=== PATIENT | male | born 1930 | race Caucasian/White ===

== ENCOUNTER 2017-01-13 02:55 | Emergency (ER) | payer MEDICARE ==
--- NOTE | ~2017-01-13 | ER ---
PATIENT'S NAME: SEDA CALIXTO [facility] AGE: 86 Y [address] ROOM: [place] [address] LOCATION: ED ADMIT DATE: 01/13/2017 ER/Outpatient Report DISCHARGE DATE: 01/13/2017 FAMILY PHYSICIAN: Bharti Ramirez MD ATTENDING PHYSICIAN: Noah Isabel Admission date and time documented in medical record. I saw the patient at 0315 hours. CHIEF COMPLAINT: Low abdominal pain radiating to his right chest anteriorly. HISTORY OF PRESENT ILLNESS: This patient is an 86-year-old male, who about 2 hours prior to admission to the emergency room was woken from sleep with low abdominal pain. Pain is constant. It radiates up into his right anterior chest. The pain is across his whole lower abdomen. No nausea, vomiting, or diarrhea. No urinary frequency, urgency, or dysuria. No joint or muscle swelling, redness, or pain. No skin eruptions or rash. No lightheadedness, dizziness, syncope, or near syncope. No fall or trauma. No recent coughs, colds, flus, fever, chills, or sweats. No headache, eyes, ears, nose, throat, neck, or spine pain. The patient does have a history of url-ifworbp-tzztzxwip diabetes mellitus type 2. No neuro changes or psych issues. HOME MEDICATIONS: See attached medication list. ALLERGIES: VERSED AND SULFA. SOCIAL HISTORY: Nonsmoker and nondrinker. SIGNIFICANT PAST MEDICAL HISTORY: 1. Atherosclerotic ischemic heart disease. 2. Coronary artery disease. 3. COPD. 4. Ascending dissecting aortic aneurysm. 5. Dyslipidemia. 6. Hypertension. 7. Insomnia. 8. Osteoporosis. 9. Degenerative osteoarthritis. 10. Adm-dvmuumi-sjnnsolqd diabetes mellitus type 2. 11. Prostate cancer. PATIENT'S NAME: SEDA CALIXTO [facility] AGE: 86 Y [address] ROOM: [place] [address] LOCATION: ED ADMIT DATE: 01/13/2017 ER/Outpatient Report DISCHARGE DATE: 01/13/2017 FAMILY PHYSICIAN: Bharti Ramirez MD ATTENDING PHYSICIAN: Noah Isabel 12. Basal cell skin cancer. 13. Remote tobacco abuse. 14. Ventricular fibrillation with cardiac arrest. PAST SURGICAL HISTORY: 1. Excision of skin cancers. 2. Ascending aortic aneurysm repair. 3. Right orchectomy. 4. Transurethral resection of the prostate. 5. Inguinal herniorrhaphy. 6. Cardiac catheterization with PTCA and stenting cataract extraction. REVIEW OF SYSTEMS: All systems reviewed by me are negative with exception of those discussed in the history of present illness. PHYSICAL EXAMINATION: VITAL SIGNS: Temperature 97.8 tympanic, pulse 64 and regular, respirations 16, blood pressure 192/91, and O2 saturation on room air is 93%. HEAD: Normocephalic. EYES, EARS, NOSE, THROAT: Clear. Mucous membranes are moist. NECK: Negative. SPINE: Negative. LUNGS: Clear. HEART: Regular. No chest wall or ribcage pain to palpation. ABDOMEN: Soft. Some lower abdominal pain. No true guarding or rigidity. No rebound tenderness. Active bowel tones. No distention. No CVA tenderness. EXTREMITIES: Intact. NEUROVASCULAR: Intact. SKIN: Clear. No skin eruptions or rash. LABORATORY DATA: CMS was normal except for an elevated glucose 118, magnesium 2.1. Amylase and lipase were normal. CPK was 82. Point of care cardiac enzymes were normal. CRP was 0.51. ProBNP was slightly elevated at 649. Procalcitonin was less than 0.05. Lactate was 0.8. Urinalysis was clear. White count is 4300, 60 segs, 25 lymphs, 12 monos, 2 eos. Hemoglobin is 12.9, hematocrit 38.9, platelet count is 194,000. PTT was 27, pro-time is 10.6. INR 1.01. EKG showed sinus rhythm. No acute ST elevation, ischemic change, or arrhythmia. Chest x-ray showed no acute infiltrate or changes. CT scan of the abdomen and pelvis with IV contrast is pending. EMERGENCY DEPARTMENT COURSE: I did give the patient IV normal saline, fluids, morphine for pain. Zofran for nausea and vomiting. PATIENT'S NAME: SEDA CALIXTO [facility] AGE: 86 Y [address] ROOM: [place], [place] [address] LOCATION: [facility] ADMIT DATE: 01/13/2017 ER/Outpatient Report DISCHARGE DATE: 01/13/2017 FAMILY PHYSICIAN: Bharti Ramirez MD ATTENDING PHYSICIAN: Noah Isabel IMPRESSION: Abdominal pain, etiology uncertain. PLAN: Transfer the patient's care over to Dr. Kuo at shift change. I asked Dr. Kuo to follow up with results of CT scan of the abdomen and pelvis, final diagnosis, and treatment plan. MD DON BURT/zeferino /[id number] d: 01/13/17 0843 t: 01/21/17 1829, OUTPATIENT REPORT
--- NOTE | ~2017-01-13 | ER ---
PATIENT'S NAME: ESDA CALIXTO [facility] AGE: 86 Y [address] ROOM: [place] [address] LOCATION: [facility] ADMIT DATE: 01/13/2017 ER/Outpatient Report DISCHARGE DATE: 01/13/2017 FAMILY PHYSICIAN: Bharti Ramirez MD ATTENDING PHYSICIAN: Soham Vieyra ADDENDUM: The patient's CT scan of the abdomen and pelvis results did come back, so I did not transfer the patient's care over to Dr. Kuo at shift change. CT scan of the abdomen and pelvis with IV contrast showed cholelithiasis but no evidence of acute cholecystitis. No other abnormalities were noted. CT scan was read by Radiology, see dictated transcribed report. IMPRESSION: 1. Abdominal pain, etiology uncertain, but most likely secondary to cholelithiasis. 2. History of atherosclerotic ischemic heart disease and coronary artery disease. 3. Chronic obstructive pulmonary disease. 4. Past history of ascending dissecting aortic aneurysm with repair. 5. Dyslipidemia. 6. Hypertension. 7. Rwn-rwroyxo-kpvkqjqox diabetes mellitus type 2. 8. History of prostate cancer. 9. History of remote tobacco abuse. PLAN: The patient was dismissed home. Observation. Activity as tolerated. Continue present home medications and care. [place] 5/325 as needed for pain. The patient is to follow up with personal physician in 2 to 3 days. Need to discuss with his personal physician whether he needs a surgery consult and possible cholecystectomy. Discussion ensued with the patient concerning my findings and recommendations, he understands. SOHAM VIEYRA MD SDS/modl /[id number] d: 01/13/17 0759 t: 01/21/17 1826, OUTPATIENT REPORT
[~2017-01-13 02:55] MED LIST: ALDACTONE25 MG PO; AMIODARONE HCL200 MG PO; ASPIRIN EC81 MG PO; COLACE100 MG PO; COZAAR25 MG PO; HALDOL2 MG PO; LIPITOR80 MG PO; LOPRESSOR25 MG PO; MIRALAX PO527 GM/BOT PO; MOBIC15 MG PO; NORCO 5-325 MG1 TAB PO; PLAVIX75 MG PO; SANCTURA 20MG20 MG PO; THERAGRAN-M1 TAB PO; TOPROL XL25 MG PO
[2017-01-13 03:53] LABS: BASOPHIL % 0.2 %; EOSINOPHIL # 0.1 K/uL (0.0-0.5); EOSINOPHIL % 2.3 %; HEMATOCRIT 38.9 % (33.0-50.0); HEMOGLOBIN 12.9 g/dL (11.0-16.0); IMMATURE GRANULOCYTE % 0.5 %; LYMPHOCYTE # 1.1 K/uL (0.8-4.0); LYMPHOCYTE % 25.3 %; MCH 32.2 pg (27.0-34.0); MCHC 33.2 gm/dL (32.0-36.5); MONOCYTE # 0.5 K/uL (0.0-1.0); MONOCYTE % 11.6 %; NEUTROPHIL # (ANC) 2.6 K/uL (1.4-9.0); NEUTROPHIL % 60.1 %; NRBC % 0 /100WBC (0-0.00); PLATELET COUNT 194 K/uL (150-450); RBC 4.01 M/uL (3.50-5.50); RDW-CV 13.2 % (11.9-14.6); WBC 4.3 K/uL (4.0-11.0)
[2017-01-13 04:03] LABS: INR - (THERAPEUTIC) 1.01 (0.92-1.07); PROTIME 10.6 SECONDS (9.8-11.4); PTT 27 SECONDS (25-32)
[2017-01-13 04:15] LABS: CPK 82 IU/L (35-332); MAGNESIUM 2.1 mg/dL (1.8-2.6)
[2017-01-13 04:17] LABS: ALBUMIN 3.5 gm/dL (3.5-5.0); ALK PHOS 93 IU/L (33-138); ALT 26 IU/L (12-78); ANION GAP 13.1 (10.0-19.0); AST 18 IU/L (10-40); BLOOD UREA NITROGEN 24 mg/dL (6-24); CALCIUM 8.7 mg/dL (8.5-10.5); CHLORIDE 106 mMol/L (96-110); CO2 27 mMol/L (22-32); ESTIMATED GFR (MDRD EQUATION) > 60; POTASSIUM 4.1 mMol/L (3.7-5.1); SODIUM 142 mMol/L (135-145); TOTAL BILIRUBIN 0.6 mg/dL (0.0-1.5); TOTAL PROTEIN 6.3 g/dL (6.0-8.4)
[2017-01-13 04:44] LABS: BILIRUBIN URINE NEGATIVE (NEGATIVE); BLOOD URINE NEGATIVE /UL (NEGATIVE); GLUCOSE URINE NEGATIVE (NEGATIVE); KETONE URINE NEGATIVE (NEGATIVE); LEUKOCYTES URINE NEGATIVE /UL (NEGATIVE); NITRITE URINE NEGATIVE (NEGATIVE); PROTEIN URINE NEGATIVE (NEGATIVE); UROBILINOGEN URINE NORMAL (NORMAL)
[2017-01-13 04:49] LABS: COLOR URINE YELLOW (YELLOW); TURBIDITY URINE CLEAR (CLEAR)
[2017-01-23] MEDS ORDERED: GLUCOPHAGE500 MG PO (17:19)
[2017-01-23] MEDS ORDERED: MIRALAX PO527 GM/BOT PO (17:20)
[2017-01-23] MEDS ORDERED: LASIX20 M1 PO (17:21)
[2017-01-23] MEDS ORDERED: OXYGEN M-15 INH (17:22)
[2017-01-23] MEDS ORDERED: SPIRIVA HANDIHA1 KIT INH (17:23)
[2017-01-28] MEDS ORDERED: NORCO 5-325 TA1 EACH PO (12:48)
== END 2017-01-13 06:36 | disposition disaster alternative care site (69) ==
LOC: GMED 02:55
PROVIDERS: Emergency Medicine
DX: K80.20 Calculus of gallbladder without cholecystitis without obstruction (principal); J44.9 Chronic obstructive pulmonary disease, unspecified; I10 Essential (primary) hypertension; E11.9 Type 2 diabetes mellitus without complications; I25.10 Atherosclerotic heart disease of native coronary artery without angina pectoris; M81.0 Age-related osteoporosis without current pathological fracture; M19.90 Unspecified osteoarthritis, unspecified site; E78.5 Hyperlipidemia, unspecified; Z79.84 Long term (current) use of oral hypoglycemic drugs; Z79.899 Other long term (current) drug therapy; Z85.46 Personal history of malignant neoplasm of prostate; Z85.828 Personal history of other malignant neoplasm of skin; Z95.5 Presence of coronary angioplasty implant and graft; Z98.49 Cataract extraction status, unspecified eye
CPT/HCPCS: J2270; J2405; J7030; Q9967

== ENCOUNTER → 2017-01-28 | Day surgery (SDC) | payer MEDICARE ==
[~2017-01-28] VITALS: Ht 175.3 cm; Wt 82.2 kg
[~2017-01-28] MED LIST changes: +ASPIRIN LO-DOSE81 MG PO; +CRANBERRY200 MG PO; +DELTASONE5 MG PO; +GLUCOPHAGE500 MG PO; +IMDUR30 MG PO; +LASIX20 M1 PO; +MIRALAX17 GM PO; +NORCO 5-325 TA1 EACH PO; +NORVASC5 MG PO; +OXYGEN M-15 INH; +SPIRIVA HANDIHA1 KIT INH
--- NOTE | ~2017-01-28 | OR ---
PATIENT'S NAME: SEDA CALIXTO [facility] AGE: 86 Y [address] ROOM: [place] [address] LOCATION: [place] ADMIT DATE: 01/28/2017 OR/Procedure Report DISCHARGE DATE: FAMILY PHYSICIAN: Bharti Ramirez MD ATTENDING PHYSICIAN: Mati Black SURGEON: Mati Black MD SPORTS MEDICINE SPECIALIST: Viji Gray PA-C. DATE OF PROCEDURE: 01/28/2017 PREOPERATIVE DIAGNOSIS: Symptomatic cholelithiasis. POSTOPERATIVE DIAGNOSIS: Symptomatic cholelithiasis. PROCEDURE: Laparoscopic cholecystectomy. FINDINGS: Critical window was able to be obtained, there were stones in the gallbladder. ESTIMATED BLOOD LOSS: Less than 20 mL. COMPLICATIONS: None. INDICATIONS: The patient is an 86-year-old male, who had presented with abdominal pain, elevated liver function tests, cholelithiasis, and symptoms consistent with biliary colic. Because of this, we discussed cholecystectomy as well as observation; risks of surgery, which include bleeding, infection, bile leak, bile duct injury, and injury to other viscera. He understood the risks and elected to proceed. DESCRIPTION OF PROCEDURE: The patient was taken to the operating room. He was placed supine, given IV sedation, and subsequently intubated. His abdomen was prepped with ChloraPrep and sterilely draped. Local anesthetic was infiltrated superior to the umbilicus. A transverse incision was created. The abdomen was elevated. Veress needle was inserted. Pneumoperitoneum was induced. Following this, a 5 mm trocar was inserted followed by insertion of the camera. There was no injury from initial trocar placement. Three more trocars were then positioned, an 11 mm epigastric and two 5 mm right subcostal ports. Skin overlying the peritoneum was first anesthetized prior to making these incisions. All 3 of these trocars were inserted under direct visualization. The gallbladder was then grasped, it was elevated over the dome of the liver. The infundibulum was grasped and retracted inferiorly and laterally to expose the Calot triangle. There were some adhesions that had to be taken down prior to being able to do this. The cystic duct and artery were dissected around circumferentially. A critical window was able to be obtained. Both of these structures were then doubly clipped and divided. The PATIENT'S NAME: SEDA CALIXTO [facility] AGE: 86 Y [address] ROOM: [place] [address] LOCATION: [place] ADMIT DATE: 01/28/2017 OR/Procedure Report DISCHARGE DATE: FAMILY PHYSICIAN: Bharti Ramirez MD ATTENDING PHYSICIAN: Mati Black gallbladder was then removed from the liver bed using electrocautery. This was placed in EndoCatch bag and removed through the epigastric port site. The liver bed was then inspected, it appeared hemostatic. Clips appeared to be in good position on both the cystic duct and artery. The area was irrigated. Fluid was removed. The pneumoperitoneum was released. The trocars were removed. The trocar sites appeared hemostatic. The fascia of the epigastric port site was approximated with 0 Vicryl suture followed by skin closure of all 4 port sites with 4-0 Monocryl suture. Steri-Strips and sterile dressings were placed. The patient was extubated and sent to recovery in good condition. Viji Gray was necessary for visualization, retraction, and aiding in hemostasis throughout the case. MATI BLACK MD BJO/modl /[id number] d: 01/28/172019 t: 01/31/17 0610, OPERATIVE SUMMARY
== END ==
LOC: GPOC 01-23 17:00 → GSDC 08:58
PROC: 0FT44ZZ Resection of Gallbladder, Percutaneous Endoscopic Approach (ICD-10-PCS; principal; 2017-01-28)
DX: K80.20 Calculus of gallbladder without cholecystitis without obstruction (principal); M19.90 Unspecified osteoarthritis, unspecified site; M81.0 Age-related osteoporosis without current pathological fracture; E11.9 Type 2 diabetes mellitus without complications; K21.9 Gastro-esophageal reflux disease without esophagitis; E78.00 Pure hypercholesterolemia, unspecified; I10 Essential (primary) hypertension; I25.2 Old myocardial infarction; I25.10 Atherosclerotic heart disease of native coronary artery without angina pectoris; J44.9 Chronic obstructive pulmonary disease, unspecified; E78.5 Hyperlipidemia, unspecified; Z85.46 Personal history of malignant neoplasm of prostate; Z87.442 Personal history of urinary calculi; Z98.41 Cataract extraction status, right eye; Z98.42 Cataract extraction status, left eye; Z98.890 Other specified postprocedural states; Z79.82 Long term (current) use of aspirin; Z79.899 Other long term (current) drug therapy
CPT/HCPCS: J0694; J2405; J2550; J3010; J7030

== ENCOUNTER 2017-03-14 22:57 | Inpatient (IN) | payer MEDICARE ==
[~2017-03-14] VITALS: Ht 177.8 cm; Wt 81.1 kg
--- NOTE | ~2017-03-14 | DS ---
PATIENT'S NAME: SEDA CALIXTO [facility] AGE: 86 Y [address] ROOM: [facility] [place], [place] [address] LOCATION: [facility] ADMIT DATE: 03/15/2017 Discharge Summary DISCHARGE DATE: 03/17/2017 FAMILY PHYSICIAN: Bharti Ramirez MD ATTENDING PHYSICIAN: Leeroy Ruelas FINAL DIAGNOSES: 1. Chest pain. 2. Nonobstructive coronary artery disease. 3. Residual thoracic dissection. 4. Diabetes mellitus type 2. PROCEDURES: He had a heart catheterization by Dr. Bocanegra on February 14, 2017. REASON FOR ADMISSION: The patient is admitted, presented to the hospital with complaints of right-sided chest pain and that was associated with diaphoresis. He did take nitroglycerin at home and his symptoms improved. He was seen in the emergency room and it was felt that he warranted hospitalization. LABORATORY DATA: On admission sodium 138, discharge 140; potassium on admission was 4.3, discharge 4; BUN on admission was 28, discharge 19; creatinine on admission was 1, discharge 0.8. Liver enzymes on admission were normal. Cholesterol 106, HDL 45, LDL 48. ProBNP on admission was 467. Hemoglobin A1c was 6.4. Serial cardiac enzymes all returned with a troponin less than 0.01. On admission, white blood cell count 6.1, hemoglobin 12.9, hematocrit 38, platelet count 196. CARDIOVASCULAR DATA: Echocardiogram showed his EF to be 55% to 60%. He had concentric left ventricular hypertrophy. His aortic valve was mildly sclerotic. Radiology, PE protocol study showed that there was some concern about residual dissection. HOSPITAL COURSE: The patient was admitted to the hospital and placed on the acute coronary protocol. Serial enzymes were obtained. The patient was started on a heparin drip. There was some concern on his CT scan for residual dissection. Decision was made to do the PE protocol CT scan and an echocardiogram. Dr. Michel from Cardiothoracic Surgery did evaluate the patient and felt that at this point, there was no reason why we could not proceed with a stress test. The patient was weaned off the nitro medications, and his blood pressure medications were adjusted. He did go to the filling station laborer the morning of the . Please see Dr. Bocanegra's note for details of the filling station laborer. It was felt that because he had nonobstructive disease that he would be able to be discharged with followup as an outpatient. He was observed. He was able to ambulate in the johnson without any chest pain and shortness of breath. His blood pressure remained stable. It was felt that he was stable PATIENT'S NAME: SEDA CALIXTO [facility] AGE: 86 Y [address] ROOM: [place] [address] LOCATION: [facility] ADMIT DATE: 03/15/2017 Discharge Summary DISCHARGE DATE: 03/17/2017 FAMILY PHYSICIAN: Bharti Ramirez MD ATTENDING PHYSICIAN: Leeroy Ruelas for discharge and discharged to home. DISCHARGE INSTRUCTIONS: To have a cardiac diet. His activity is routine post catheterization. He is to see Dr. Bharti Ramirez his PCP in 3 to 5 days. He did ask to switch to Dr. Bocanegra to be his try out person. An appointment was made for 10 to 14 days with a BMP. MEDICATIONS: 1. Aspirin 81 mg daily. 2. Lipitor 80 mg daily. 3. Plavix 75 mg daily. 4. Norvasc 5 mg daily. 5. Imdur 30 mg daily. 6. Lopressor 12.5 mg 4 times daily. 7. MiraLAX 17 g twice daily as needed for constipation. 8. Prednisone 5 mg daily. 9. Multivitamin daily. 10. Sanctura 20 mg twice daily. 11. Spiriva 2 puffs daily. 12. [place]aver[place] 5/325, 1 to 2 every 4 hours as needed for pain. 13. Aldactone 12.5 mg daily. 14. Glucophage 500 mg daily, resume on March 19. 15. Lasix 20 mg daily. 16. Oxygen as at home. 17. Cranberry 1 tablet daily. 18. Colace 100 mg daily as needed for constipation. OVERALL PROGNOSIS: At discharge, is good. ANYA LOUIE MD LAW/modl /[id number] CC: MD Bharti Cronin MD d: 03/18/17 2325 t: 03/23/17 1626, DISCHARGE SUMMARY
--- NOTE | ~2017-03-14 | ECHO ---
Transthoracic Echocardiography Report (TTE) Demographics Patient Name SEDA CALIXTO Date of Study 03/15/2017 Patient Number [id number] Visit Number [id number] Date of 1930 Room Number G6332 Gender Male Number Age 86 year(s) Referring James Mattson Cotton Candy Maker Nay Yung RVIsabel, Physician RDCS Physician Interpreting Daljit Jones Tool Inspector Physician Supervising Ordering Suraj Schafer MD, MD/MLP Physician Nurse Stress Pest Control Applicator Conclusions Contractility Score Summary Normal Left Ventricular contractility was noted. Summary The estimated left ventricular ejection fraction is 55-60%. Mild concentric left ventricular hypertrophy. Diastolic assessment reveals Grade I diastolic dysfunction. The left atrium is mildly dilated. The aortic valve is moderately sclerotic. with mild aortic stenosis with mean gradient across aortic valve of 8 mm hg There is mild aortic regurgitation by color Doppler. The aortic root appears moderately dilated. The maximum diameter measures 4.1 cm. The ascending aorta appears mildly dilated. The maximum diameter measures 3.9 cm. Procedure Type of Study TTE procedure:2D Echocardiogram. Procedure Date Date: 03/15/2017 Start: 11:52 AM Study Location: Inpatient Portable Technical Quality: Good visualization Indications:Chest pain. Appropriate Use Criteria: 8 Patient Status: Routine Rhythm: NSR HR: 67 bpm BP: 142/63 mmHg Allergies - Sulfa. - Other:(versed). M-Mode/2D Measurements LV Diastolic Dimension: 4.06 cm LV Systolic Dimension: 1.96 cm LV Septum Diastolic: 1.3 cm LV PW Diastolic: 1.41 cm AO Root Dimension: 3.8 cm Cardiac Output: 8.15 l/min AV Cusp Separation: 1.1 cm RV Diastolic Dimension: 2.92 cm LA volume: 64 ml LVOT: 2.3 cm RV Base: 4.1 cm LVOT VTI: 29.3 cm RV Mid: 3.65 cm LV Stroke volume: 121.67 ml TAPSE: 2.12 cm TDI-S': 9.21 cm/s Doppler Measurements AV Peak Velocity: 2.03 m/s MV Peak E-Wave: 0.78 m/s AV Peak Gradient: 16.48 mmHg MV Peak A-Wave: 1.06 m/s AV Mean Gradient: 8 mmHg MV E/A Ratio: 0.73 LVOT Peak Velocity: 1.23 m/s MV P1/2t: 67 msec TR Gradient:10.5 mmHg PV Peak Velocity: 0.94 m/s Estimated RAP:5 mmHg PV Peak Gradient: 3.54 mmHg Estimated RVSP: 16 mmHg Estimated PASP: 15.5 mmHg E' Septal Velocity: 0.08 m/s A' Septal Velocity: 0.13 m/s E' Lateral Velocity: 0.08 m/s A' Lateral Velocity: 0.13 m/s Findings Left Ventricle Mild concentric left ventricular hypertrophy. Diastolic assessment reveals Grade I diastolic dysfunction. Right Ventricle Normal right ventricle structure and function. Left Atrium The left atrium is mildly dilated. There is no evidence of patent foramen ovale or atrial septal defect by color Doppler. Right Atrium Normal right atrial size. Mitral Valve Mild mitral annular calcification. Aortic Valve The aortic valve is moderately sclerotic. with mild aortic stenosis with mean gradient across aortic valve of 8 mm hg There is mild aortic regurgitation by color Doppler. Tricuspid Valve Normal tricuspid valve structure and function. Trivial tricuspid regurgitation by color Doppler. Pulmonic Valve Normal pulmonic valve structure and function. Pericardial Effusion No evidence of pericardial effusion. Miscellaneous The aortic root appears moderately dilated. The maximum diameter measures 4.1 cm. The ascending aorta appears mildly dilated. The maximum diameter measures 3.9 cm. Pleural Effusion No evidence of pleural effusion. Contractility Score LV regional wall motion:(0-Non visualized 1-Normal 2-Hypokinesis 3-Akinesis 4-Dyskinesis 5-Aneurysm) Signature dtt: GLORIA SANTOS dtd: 03/15/17 1152 Physician Self Edit
--- NOTE | ~2017-03-14 | ER ---
PATIENT'S NAME: JUWAN CALIXTOALD Ese [facility] AGE: 86 Y [address] ROOM: [facility] [place] [place], [place] [address] [facility] AD[facility] DATE: 03/15/2017 ER/Outpatient Report DISCHARGE DATE: FAMILY PHYSICIAN: Bharti Ramirez MD ATTENDING PHYSICIAN: JOSE RAFAEL RUELAS Admission date and time documented in the medical record. I saw the patient at 2305 hours. CHIEF COMPLAINT: Mid to right anterior chest pain. HISTORY OF PRESENT ILLNESS: The patient is an 86-year-old male, who was sitting reading at home, around 2100 hours developed some mid right anterior chest pain. Pain is nonradiating. The patient's pain was about 8/10. The patient did take 2 sublingual nitroglycerin that brought his pain down to about a 4/10. He presented to the emergency room for evaluation. No accompanied shortness of breath, nausea, vomiting, or lightheadedness. Did have some diaphoresis with this. The patient is known to have coronary artery disease. Has had some coronary artery stenting by history. No previous myocardial infarction. He has had a history of an ascending dissecting aortic aneurysm with repair. No fall or trauma. No recent colds, coughs, flus, fever, chills, or sweats. Does hurt when he takes a deep breath or coughs. No real tenderness with movement. No lightheadedness, dizziness, syncope, or near syncope. No headache, eyes, ears, nose, throat, neck, or spine pain. No abdominal pain. No diarrhea or urinary frequency, urgency, or dysuria. No joint or muscle swelling, redness, or pain. No skin eruptions or rash. No history of thyroid disease, but does have fyo-bfifley-aydshrjyy diabetes mellitus type 2. No history of psych issues. No history of CVA, TIA, or seizure disorder. HOME MEDICATIONS: See attached medication list. ALLERGIES: VERSED, SULFA. SOCIAL HISTORY: Nonsmoker, nondrinker. SIGNIFICANT PAST MEDICAL HISTORY: Atherosclerotic ischemic heart disease with coronary artery disease, COPD, ascending dissecting aortic aneurysm with repair, dyslipidemia, hypertension, insomnia, osteoporosis, degenerative osteoarthritis, wum-pnvumys-bjgrgmmxw diabetes mellitus type 2, prostate cancer, basal cell skin cancer, remote [facility] 86 [facility] [address] ROOM: [id number] [place], [place] [address] [facility] AD[facility] DATE: 03/15/2017 ER/Outpatient Report DISCHARGE DATE: FAMILY PHYSICIAN: Bharti Ramirez MD ATTENDING PHYSICIAN: JOSE RAFAEL RUELAS tobacco abuse, past episode of ventricular fibrillation with cardiac arrest. OPERATIONS: Transurethral resection of the prostate, inguinal herniorrhaphy, right orchectomy, repair of ascending aortic aneurysm dissection, excision of skin cancer, cardiac catheterization with PTCA and stenting, laparoscopic cholecystectomy. REVIEW OF SYSTEMS: All systems reviewed by me are negative with the exception of those discussed in the history of the present illness. PHYSICAL EXAMINATION: VITAL SIGNS: Temperature 97.6 tympanic, pulse 69 and regular, respirations 16, blood pressure 132/63, O2 sat on room air is 93%. Frantz Coma Scale was 15. HEAD: Normocephalic. EYES, EARS, NOSE, THROAT: Clear. Mucous membranes moist. TEETH/JAW: Intact. NECK: No nuchal rigidity. No thyromegaly or cervical lymphadenopathy. No tenderness. SPINE: Nontender. No deformity. LUNGS: Clear. Good air flow. No rales, rhonchi, or wheezes. HEART: Regular. Pulses are palpable. No chest wall or ribcage pain to palpation. ABDOMEN: Soft, nondistended, nontender. Good bowel tones. No organomegaly or abnormal mass palpable. No CVA tenderness. EXTREMITIES: Intact. NEUROVASCULAR: Intact. SKIN: Clear. No skin eruptions or rash. DIAGNOSTIC DATA: EKG showed sinus rhythm. No acute ST elevation, ischemic change, or arrhythmia. Does have some questionable T-wave inversion laterally that possibly could be ischemic. Chest x-ray showed no acute infiltrate or changes. We will review x-ray with the radiologist. LABORATORY DATA AND X-RAYS: White count is 8100, 65 segs, 23 lymphs, 9 monos, 2 eos, 1 baso. Hemoglobin is 13.9, hematocrit 40.8, platelet count is 230,000. PTT was 25, pro-time is 10.3 with an INR of 0.98. CMS was normal except for elevated glucose of 110. Low calcium of 8.3, elevated BUN of 28. Magnesium was 2.0, CPK was 62. Point of care cardiac enzymes were normal. EMERGENCY DEPARTMENT COURSE: PATIENT'S NAME: SEDA CALIXTO [facility] AGE: 86 Y [address] ROOM: [place] [facility] [place] [place], [place] [address] [facility] AD[facility] DATE: 03/15/2017 ER/Outpatient Report DISCHARGE DATE: FAMILY PHYSICIAN: Bharti Ramirez MD ATTENDING PHYSICIAN: JOSE RAFAEL RUELAS I did start the patient on IV nitroglycerin drip with resolution of his pain. Also started him on IV heparin for cardiac protocol. Did give him 4 baby aspirin orally on arrival to the emergency department. IMPRESSION: 1. Chest pain, unstable angina. The patient does have a history of coronary artery disease. He has had previous cardiac catheterization with PTCA and stenting. 2. Chronic obstructive pulmonary disease. 3. Hypertension. 4. Dyslipidemia. 5. Past history of dissecting ascending aortic aneurysm with repair. 6. Ath-igeyuvm-jqsetrnqc diabetes mellitus type 2. 7. Past history of prostate cancer. 8. Remote tobacco abuse. 9. An incident where he had ventricular fibrillation with cardiac arrest. PLAN: Discussed this patient with Dr. Ruelas, the hospitalist. Dr. Ruelas is coming to the emergency room to admit the patient to the hospital for further cardiac workup and evaluation. I did discuss my findings with the patient and his . They understand and agree with treatment plan. Accumulated critical care time 30 minutes. MD DON BURT/zeferino /[id number] d: 03/15/17 0133 t: 03/15/17 1808, OUTPATIENT REPORT
--- NOTE | ~2017-03-14 | HP ---
PATIENT'S NAME: SEDA CALIXTO [facility] AGE: 86 Y [address] ROOM: [place] [address] LOCATION: GPCU ADMIT DATE: 03/15/2017 History & Physical DISCHARGE DATE: FAMILY PHYSICIAN: Bharti Ramirez MD ATTENDING PHYSICIAN: JOSE RAFAEL ESTRADA DATE OF SERVICE: CHIEF COMPLAIN: Chest pain. HISTORY OF PRESENT ILLNESS: This is an 86-year-old gentleman with a past medical history of coronary artery disease unfortunately leading to cardiac arrest in the past, also has aortic dissection, history of hypertension, type 2 diabetes. At home around 2100 hours, he developed right-sided sharp chest pain which started suddenly associated with diaphoresis, not assisted with any shortness of breath, any palpitation. Did not radiate to the back or either shoulders. It was about 8/10, relieved with the nitroglycerin which he took at home. He has to take another nitroglycerin before coming to the emergency department. He said it was not associated with any dizziness, any abdominal pain, any constipation, diarrhea. On further inquiry, he denied any leg swelling, any palpitations, any syncope, presyncope or any trouble swallowing. REVIEW OF SYSTEMS: All other systems reviewed and were negative except those mentioned in the HPI. ALLERGIES: THE PATIENT IS ALLERGIC TO SULFA AND VERSED. PAST MEDICAL HISTORY: Significant for: 1. Coronary artery disease status post PCI to left proximal. 2. History of aortic repair. 3. Type 2 diabetes. 4. Prostate cancer. 5. Osteoporosis. 6. Osteoarthritis. 7. Dyslipidemia. MEDICATIONS: Being reconciled right now. FAMILY HISTORY: PATIENT'S NAME: SEDA CALIXTO [facility] AGE: 86 Y [address] ROOM: [place] [address] LOCATION: GPCU ADMIT DATE: 03/15/2017 History & Physical DISCHARGE DATE: FAMILY PHYSICIAN: Bharti Ramirez MD ATTENDING PHYSICIAN: JOSE RAFAEL ESTRADA A Brother had skin cancer. Father had heart disease in old age. Mother of stroke. SOCIAL HISTORY: History of tobacco abuse in the distant past. PHYSICAL EXAMINATION: VITAL SIGNS: Blood pressure in both arms were comparable around 110/60 heart rate 52, saturating 95% on 2 L of oxygen. GENERAL: No acute distress. Alert and oriented x3. HEENT: Head: Atraumatic, normocephalic. Eyes: Nonicteric. No pallor. Oropharynx moist mucous membranes. CARDIOVASCULAR: S1, S2. No murmurs, gallops, or rubs. LUNGS: Clear to auscultation bilaterally. ABDOMEN: Soft, nontender, nondistended. Bowel sounds present. EXTREMITIES: There is +1 extremity edema on the left side. Otherwise, no clubbing, no cyanosis noted. MUSCULOSKELETAL: No muscle tenderness or joint swelling noted. PSYCH: Normal affect, mood and speech. NEURO: Cranial nerves 2 through 12 intact. No motor or sensory deficit. ENDOCRINE: No thyromegaly or myxedema noted. SKIN: No blemishes or dryness noted. DIAGNOSTIC DATA: Chest x-ray done in the emergency department did not reveal any acute intrathoracic processes. EKG was done, which was in normal sinus rhythm, did show T-wave inversion in lead 1 and aVL which is a significant change from the previous EKGs. Initial troponin levels, CBC and CMP have been unremarkable. ASSESSMENT: 1. Likely unstable angina. 2. History of coronary artery disease. 3. History of aortic dissection. 4. Type 2 diabetes mellitus. 5. Hypertension. 6. Hyperlipidemia. 7. Prostate cancer. PLAN: We are going to admit this patient and do a serial EKG and troponin levels. Aspirin, statin and a nitro drip had been started. I did entertain the idea of pulmonary embolism as well as aortic dissection. We are going to get D- dimers if negative. We will start the patient on heparin drip as soon as the PATIENT'S NAME: SEDA CALIXTO [facility] AGE: 86 Y [address] ROOM: [address] [address] LOCATION: GPCU ADMIT DATE: 03/15/2017 History & Physical DISCHARGE DATE: FAMILY PHYSICIAN: Bharti Ramirez MD ATTENDING PHYSICIAN: JOSE RAFAEL ESTRADA A concern for aortic dissection is ruled out. Physical exam is not suggestive of that. Chest pain is not radiating to the back. Otherwise, we will go ahead and get a CAT scan of the chest, time for aortic dissection. Echocardiography in the morning. Cardiology consult in the morning. N.p.o. Sliding scale insulin. Activity as tolerated. Further management will depend on his progress in the hospital. MD LENIN MCCALL/zeferino /[id number] D: [id number] T: [id number] HISTORY & PHYSICAL
--- NOTE | ~2017-03-14 | CON ---
PATIENT'S NAME: SEDA CALIXTO [facility] AGE: 86 Y [address] ROOM: [place] [address] LOCATION: GPCU ADMIT DATE: 03/15/2017 Consultation DISCHARGE DATE: FAMILY PHYSICIAN: Bharti Ramirez MD ATTENDING PHYSICIAN: JOSE RAFAEL ESTRADA REFERRING PHYSICIAN: Jayy Suarez MD REFERRING PHYSICIAN: Dr. Lilly. REASON FOR CONSULT: Chest pain. HISTORY OF PRESENT ILLNESS: Mr. Calixto is a pleasant 86-year-old male with historyof coronary artery disease, status post percutaneous intervention of circumflex coronary artery and history of aortic dissection, status post surgery who presented to the emergency room with history of chest pain. The patient stated that he had persistent chest pain for few hours in the front of the chest and right side of the chest. The pain was 8 x 10 in intensity. It subsided after sublingual nitroglycerin and had recurrence and he had to take another sublingual nitroglycerin for relief of pain. Presently, the patient is chest pain-free. He denied any shortness of breath. He is physically not very active due to chronic ankle pain. He was seen in the emergency room and was found to have elevated D-dimers and was admitted for further management. REVIEW OF SYSTEMS: The patient denied any recent change in vision. No history of nausea, vomiting, diarrhea, or constipation. No history of fever, no history of cough or expectoration. No history of abdominal pain. Review of other systems was essentially negative. PAST MEDICAL HISTORY: Aortic dissection, status post repair; coronary artery disease, status post percutaneous intervention of left circumflex coronary artery; diabetes mellitus type 2; prostate cancer; osteoporosis; osteoarthritis; and dyslipidemia. PAST SURGICAL HISTORY: The patient stated he had gallbladder removed recently. SOCIAL HISTORY: The patient is . PERSONAL HISTORY: He quit smoking several years ago, nonalcoholic. PATIENT'S NAME: SEDA CALIXTO [facility] AGE: 86 Y [address] ROOM: [place] [address] LOCATION: GPCU ADMIT DATE: 03/15/2017 Consultation DISCHARGE DATE: FAMILY PHYSICIAN: Bharti Ramirez MD ATTENDING PHYSICIAN: JOSE RAFAEL ESTRADA FAMILY HISTORY: His father had heart disease in old age and his mother of stroke. PHYSICAL EXAMINATION: VITAL SIGNS: His temperature is 97.7, pulse rate 53, blood pressure 141/80, respiratory rate 16. HEENT: His head is atraumatic and normocephalic. Oral mucosa is moist. The patient is edentulous. NECK: No significant jugular venous distention is present. CARDIOVASCULAR: S1, S2 are audible. They are regular in rate and rhythm. Grade 3/6 ejection systolic murmur is audible all over precordium. RESPIRATORY: Bilateral vesicular breath sounds are present with no adventitious sounds. ABDOMEN: Scar moscoso from previous surgery present. Abdomen is soft and nontender. Bowel sounds are present. EXTREMITIES: Showed no significant pedal edema. NEUROLOGIC: The patient is awake, alert, and oriented. SKIN: Skin is warm and dry. LABORATORY DATA: Sodium 141, potassium 4.2, chloride 105, CO2 31, glucose 90. BUN 25, creatinine 1. AST 19, ALT 33, magnesium 2. CPK 54, CK-MB 0.9. Troponin I less than 0.04 x3 sets. White blood cell count 6.1, hemoglobin 12.9, platelet count 196. His EKG showed sinus rhythm with PACs with no acute ST-T wave changes. His EKG done yesterday showed T-wave inversion in I and aVL. His last echocardiogram showed ejection fraction of 60% to 65%. 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 The patient had cardiac cath and PCI in 2013 and had PCI of left circumflex with 4.5 x 20 mm VeriFLEX bare-metal stent. CURRENT MEDICATIONS: 1. Prednisone 5 mg daily. 2. Atorvastatin 80 mg daily. 3. Clopidogrel 75 mg daily. 4. Aspirin 81 mg daily. 5. Insulin. 6. Nitroglycerin drip for pain control. 7. Heparin drip. ASSESSMENT: 1. Coronary artery disease, status post PCI of circumflex coronary artery in 2013. 2. Unstable angina. 3. Thoracic aortic aneurysm, status post repair. PATIENT'S NAME: SEDA CALIXTO [facility] AGE: 86 Y [address] ROOM: [place] [address] LOCATION: GPCU ADMIT DATE: 03/15/2017 Consultation DISCHARGE DATE: FAMILY PHYSICIAN: Bharti Ramirez MD ATTENDING PHYSICIAN: JOSE RAFAEL ESTRADA. Elevated D-dimer, workup in progress. PLAN: We will continue current medical therapy with aspirin, statin, nitroglycerin drip, and heparin drip. We will also start the patient on low-dose beta blockers and titrate dose as tolerated. If the patient remains pain-free, we will consider stress test in the a.m. However, if he has recurrence of chest pains, then we will proceed with left heart catheterization. The patient also has elevated D-dimer. Workup per hospitalist team. The plan of care was discussed with the patient, his , and the nursing team. We will follow the patient along with you. Thank you for allowing us in taking part in the care of this pleasant patient. MD CHANTELLE DUFFY/zeferino /[id number] d: 03/15/17 1031 t: 03/27/17 1037, CONSULTATION REPORT
--- NOTE | ~2017-03-14 | CATH ---
Cardiac Diagnostic Report Demographics Patient Name DURGA Mulligan Gender Male Date of 1930 Age 86 year(s) Patient Number [id number] Date of Study 03/17/2017 Visit Number [id number] Room Number G63[address] [place] [id number] Ht 177.8 cm Wt 81.65 kg Referring Primary Physician Physician Performing Alekrrlexi Secondary Physician Physician Robert Diagnostic Alekrra Assisting Physician Physician Robert Interventional Physician Reducing Machine Operator Physician Findings and Conclusions Diagnostic Findings and Conclusion Left dominant L Main: No significant epicardial disease LAD: Mid 30% stenosis with myocardial bridging L Cx: Proximal 30-40% in stent re-stenosis RCA: Non dominant, no significant stenosis Diagnostic Recommendations Maximize medical therapy Procedure Description The patient was brought to the diagnostic cardiac catheterization-EP laboratory in the fasting, non-sedated state. Informed consent was obtained in the written and verbal form after the risks and benefits were explained. The patient had no further questions and agreed to proceed. The planned puncture-incision site(s) were shaved and prepped with ChloraPrep and draped in the usual sterile manner. Conscious sedation, supplemental oxygen, and pain control medications were delivered by a registered nurse under physician guidance. Surface ECG rhythm, blood pressure measurement, and pulse oximetry were monitored throughout the procedure. Arterial access. The access site on right wrist was infiltrated with lidocaine. The vessel was entered with the Seldinger technique. A sheath was advanced into the vessel and used for catheter placement. Selective left coronary angiography. A catheter was advanced into the left coronary vessel ostium under Fluoroscopic guidance. Contrast was injected by hand. Images were obtained in multiple projections. Selective right coronary angiography. A catheter was advanced into the right coronary vessel ostium under fluoroscopic guidance. Contrast was injected by hand. Images were obtained in multiple projections. Left heart catheterization. A catheter was advanced across the aortic valve to the left ventricle under fluoroscopic guidance. Resting hemodynamics were obtained. Arterial artery hemostasis was achieved. The patient was transferred to a regular nursing floor via cart accompanied by a nurse. The patient left the laboratory in stable condition. Diagnostic Cath Status: Urgent Procedure Procedure Type Diagnostic procedure:Angiography:, Coronary Angios w/[facility] Indications: Unstable angina. The procedure was explained in detail to the patient. Risks, complications and alternative treatments were reviewed. Written consent was obtained. Medications Reviewed with Patient prior to Procedure. Angiographic Findings Dominance: Left Cardiac Arteries and Lesion Findings LMCA: Normal (0% Stenosis). LAD: Abnormal.mid 20-30% Lesion on Mid LAD: Mid subsection.30% stenosis . LCx: Abnormal.prox 20-30% in stent re-stenosisThere is a previous stent on Prox CX. Lesion on Prox CX: Proximal subsection.30% stenosis . RCA: Normal (0% Stenosis).no n-dominant Coronary Tree Procedure Data Procedure Date Date: 03/17/2017Start: 10:53 AMEnd: 11:46 AM Entry Locations - Retrograde Percutaneous access was performed through the Right Radial artery (Primary location). A 6 Fr sheath was inserted. Hemostasis was successfully obtained using Mechanical Compression. Closure Comments: 9 cc air in r band deployed by artie. Procedure Medications Order and Administration + + + + + !Time !Medication !Dosage !Route ! + + + + + !03/17/2017 10:46 AM !Fentanyl !25 mcg !I.V. ! + + + + + !03/17/2017 10:59 AM !Radial Verapamil !1.25 mg !I.A. ! + + + + + !03/17/2017 10:59 AM !Radial Nitroglycerin !100 mcg !I.A. ! + + + + + !03/17/2017 11:03 AM !Heparin (ACC_3) !3500 units !I.V. bolus ! + + + + + !03/17/2017 11:11 AM !Nitroglycerin !100 mcg !I.A. ! + + + + + !03/17/2017 11:40 AM !Fentanyl !25 mcg !I.V. ! + + + + + Devices Used - A5 Fr. JJ 3DRC Diag. Catheterwas used for:Right coronary angiography. - A5 Fr. BS JL 3.5 Diag. Catheterwas used for:Left coronary angiography. - A5 Fr. BS JR 4 Diag. Catheterwas used for:Right coronary angiography. Contrast Material - Isovue 68985 ml Fluoroscopy Time: Diagnostic: 20:00 minutes. Total: 20:00 minutes. Fluoroscopy Dose: Diagnostic: 1217 mGy. Total: 1217 mGy. Estimated Blood Loss: 10 ml. Medical History Allergies - Sulfa. - Other:(versed). - Sulfa. - Other:(Versed). Risk Factors The patient risk factors include:prior PCI on 07/29/2014;hypertension, insulin-treated diabetes mellitus, last creatinine: 0.8 mg/dl, creatinine clearance: 79.38 ml/min, dyslipidemia, former tobacco use and prior [place] . Admission Data Admission Date: 03/15/2017 Admission Time: 12:38 AM Admit Source: Other Insurance Payors: Medicare. Admission Medications + +------+------+ + + + + !Medication !Dosage!Times !Last !Last !Administered !Comments ! ! ! !Per !Delivery !Delivery ! ! ! ! ! !Day !Date !Time ! ! ! + +------+------+ + + + + !Beta ! ! ! ! ! ! ! !Sabino ! ! ! ! ! ! ! !(any) ! ! ! ! ! ! ! + +------+------+ + + + + !Aspirin ! ! ! ! ! ! ! !(any) ! ! ! ! ! ! ! + +------+------+ + + + + !Statin ! ! ! ! ! ! ! !(any) ! ! ! ! ! ! ! + +------+------+ + + + + Clinical Evaluation Leading to Procedure - The patient's CAD presentation was assessed as: Unstable angina. - Anti-anginal medications were prescribed during the past two weeks. The medications are: Beta Blockers, Ca channel Blockers and Long Acting Nitrates. VA Ventriculography Findings LVEDP 6mmgh LV function assessed as:Normal. Ejection Fraction - 03/15/2017 - Method: Echocardiography. EF%: 60. LVA Segment Contractility 1 - Normal 3 - Mild 5 - Severe 7 - Dyskinesis hypokinesis hypokinesis 2 - 4 - Moderate 6 - Akinesis 8 - Aneurysm Hypokinesis hypokinesis Hemodynamics Condition: Rest O2 Consumption: Estimated: 221.52Heart Rate: 62 bpm Pressures (mmHg) +-----+ + !Site !Pressure ! +-----+ + !AO !141/64 (98) ! +-----+ + !LV !162/0 ,8 ! +-----+ + !LV !158/-1 ,6 ! +-----+ + Shunts Oxygen Values O2 Capacity 170 O2 Consumption 221.52 Signatures dtt: ROBERT SANTOS dtd: 03/17/17 1053 Physician Self Edit
[~2017-03-14 22:57] MED LIST changes: -ASPIRIN LO-DOSE81 MG PO; -CRANBERRY200 MG PO; -DELTASONE5 MG PO; -IMDUR30 MG PO; -MIRALAX17 GM PO; -NORVASC5 MG PO
[2017-03-14 23:12] LABS: BASOPHIL # 0.1 K/uL (0.0-0.2); BASOPHIL % 0.7 %; EOSINOPHIL # 0.2 K/uL (0.0-0.5); EOSINOPHIL % 2.3 %; HEMATOCRIT 40.8 % (33.0-50.0); HEMOGLOBIN 13.9 g/dL (11.0-16.0); IMMATURE GRANULOCYTE # 0.1 K/uL (0.0-0.3); IMMATURE GRANULOCYTE % 1.1 %; LYMPHOCYTE # 1.8 K/uL (0.8-4.0); LYMPHOCYTE % 22.6 %; MCH 33.1 pg (27.0-34.0); MCHC 34.1 gm/dL (32.0-36.5); MCV 97.1 fl (83.0-98.0); MONOCYTE # 0.7 K/uL (0.0-1.0); MONOCYTE % 8.8 %; MPV 9.8 fl (9.4-12.4); NEUTROPHIL # (ANC) 5.2 K/uL (1.4-9.0); NEUTROPHIL % 64.5 %; NRBC % 0 /100WBC (0-0.00); PLATELET COUNT 230 K/uL (150-450); RDW-CV 13.6 % (11.9-14.6); WBC 8.1 K/uL (4.0-11.0)
[2017-03-14 23:20] LABS: INR - (THERAPEUTIC) 0.98 (0.92-1.07); PROTIME 10.3 SECONDS (9.8-11.4); PTT 25 SECONDS (25-32)
[2017-03-14 23:32] LABS: ALBUMIN 3.3 gm/dL (3.5-5.0); ALK PHOS 105 IU/L (33-138); ALT 33 IU/L (12-78); ANION GAP 11.3 (10.0-19.0); AST 19 IU/L (10-40); BLOOD UREA NITROGEN 28 mg/dL (6-24); CALCIUM 8.3 mg/dL (8.5-10.5); CHLORIDE 103 mMol/L (96-110); CO2 28 mMol/L (22-32); CPK 62 IU/L (35-332); POTASSIUM 4.3 mMol/L (3.7-5.1); SODIUM 138 mMol/L (135-145); TOTAL PROTEIN 6.2 g/dL (6.0-8.4)
[2017-03-14 23:33] LABS: TOTAL BILIRUBIN 0.4 mg/dL (0.0-1.5)
[2017-03-15 00:56] LABS: CPK 54 IU/L (35-332)
[2017-03-15] MEDS ORDERED: CRANBERRY200 MG PO (01:56)
[2017-03-15] MEDS ORDERED: DELTASONE5 MG PO ×2 (01:58→02:02)
[2017-03-15] MEDS ORDERED: ASPIRIN LO-DOSE81 MG PO (01:59)
[2017-03-15] MEDS ORDERED: COLACE100 MG PO (02:00)
--- NOTE | 2017-03-15 02:44 | NUR ---
THE PATIENT IS FROM [place] WHERE HE LIVES AT HOME WITH HIS . HE BEGAN HAVING CHEST PAIN AROUND 2100 WHILE SITTING IN HIS RECLINER, AT THAT TIME HE RATED HIS PAIN 8/10 AND WAS DIAPHORETIC. HE TOOK 2 SL NITRO WHICH REDUCED HIS PAIN TO 4/10 AND TOOK HIM TO THE ER. IN ER WAS STARTED ON NITRO AT 5 MCG/MIN AND HEPARIN AT 1000 UNITS/HR. EKG NORMAL SINUS. 2 SETS CARDIAC ENZYMES NORMAL. D-DIMER 0.99. HE ARRIVED ON PCU VIA WHEELCHAIR AT 0130. AMBULATED VERY WELL TO THE BED IN NO APPARENT DISTRESS, RATED ALL PAIN AT A "0". HEPARIN AND NITRO RUNNING PREVIOUSLY STATED. HX: HTN, DIABETES, PROSTATE CA, SKIN CA, AAA, COPD, ARTHEROSCLEROTIC HEART DISEASE, PREVIOUS CATH WITH 1 STENT. ALLERGIES: VERSED, SULFA'S.
--- NOTE | 2017-03-15 05:44 | NUR ---
Significant Event: A/0 X 4, AMBULATES WELL WITH 1 STAND BY ASSIST. SBP'S 130'S TO 150'S, HR REMAINS TAMARA IN THE MID 50'S WHILE SLEEPING TO UPPER 60'S WHEN AWAKE. 02 AT 2L SATS UPPER 90'S, AFEBRILE. HEPARIN AT 1000 UNITS/HR, NEXT PTT-HP 0630, NITRO AT 5 MCG/MIN. HAS HAD NO COMPLAINTS OF CHEST PAIN OR ANY OTHER PAIN. NPO SINCE MIDNIGHT. ECHO THIS AM ALONG WITH CARDIOLOGY CONSULT. 2 SETS CARDIAC ENZYMES HAVE BEEN NEGATIVE. Follow up:
[2017-03-15 06:36] LABS: BASOPHIL % 0.5 %; EOSINOPHIL # 0.2 K/uL (0.0-0.5); EOSINOPHIL % 3.8 %; HEMOGLOBIN 12.9 g/dL (11.0-16.0); IMMATURE GRANULOCYTE # 0.1 K/uL (0.0-0.3); IMMATURE GRANULOCYTE % 1.8 %; LYMPHOCYTE # 1.6 K/uL (0.8-4.0); LYMPHOCYTE % 26.5 %; MCH 33.1 pg (27.0-34.0); MCHC 33.9 gm/dL (32.0-36.5); MCV 97.4 fl (83.0-98.0); MONOCYTE # 0.7 K/uL (0.0-1.0); MONOCYTE % 10.6 %; MPV 9.8 fl (9.4-12.4); NEUTROPHIL # (ANC) 3.5 K/uL (1.4-9.0); NEUTROPHIL % 56.8 %; NRBC % 0 /100WBC (0-0.00); PLATELET COUNT 196 K/uL (150-450); RDW-CV 13.7 % (11.9-14.6); WBC 6.1 K/uL (4.0-11.0)
[2017-03-15 06:58] LABS: ANION GAP 9.2 (10.0-19.0); CALCIUM 8.2 mg/dL (8.5-10.5); POTASSIUM 4.2 mMol/L (3.7-5.1)
--- NOTE | 2017-03-15 12:25 | NUR ---
1040 ONE LITER OF FLUID FINISHED
--- NOTE | 2017-03-15 12:25 | NUR ---
0905 [facility] ORDERED BY MD SANTOS
--- NOTE | 2017-03-15 12:26 | NUR ---
1025 ORDERED TO STOP HEPARIN MAY POSSIBLY RESTART AFTER CT
--- NOTE | 2017-03-15 12:27 | NUR ---
MAY HAVE STRESS TEST TOMORROW-WILL SEE IF PAIN RETURNS TO CHEST NITRO DRIP STILL RUNNING AND HEPARIN OFF PER MD SANTOS ORDER NO CAFFEINE TILL OK'D BY WILL GO NPO AT MIDNIGHT IN CASE THE PATIENT WILL HAVE STRESS TEST IN AM IS ON A CARDIAC DIET OF NOW
--- NOTE | 2017-03-15 18:56 | NUR ---
GREAT PATIENT. SUPER HELPFUL AND PATIENT. EASY GOING AND COMPLIANT.
--- NOTE | 2017-03-16 05:30 | NUR ---
Significant Event: A/0 X 3, AMBULATES STAND BY ASSIST. ALL VSS ON 2L O2 PER HOME DOSE AT HS, AFEBRILE. HEPARIN D/C'D DURING DAY. NITRO REMAINS AT 5 MCG/MIN DUE TO COMPLAINTS OF CHEST PAIN THIS AM. HAS NOT HAD ANY PAIN DURING EVENING SHIFT. RESTED WELL ALL EVENING. CT EXAM PERFORMED YESTERDAY SHOWS SHORT RESIDUAL DISSECTION CHANGES. NPO SINCE MIDNIGHT WILL HAVE LEXISCAN THIS AM. Follow up:
--- NOTE | 2017-03-16 19:58 | NUR ---
PATIENT DID NOT GET STRESS TEST TODAY. HE WAS PUT BACK ON A CARDIAC DIET. HE WILL GO NPO AT MIDNIGHT FOR HEART CATH TOMORROW. CONSENTS ARE SIGNED. PATIENT IS OFF NITRO DRIP AND HAS NOT SPOKEN OF ANY PAIN SINCE 0930 YESTERDAY MORNING. FAMILY HAS BEEN BACK AND FORTH ALL DAY. PATIENT IS ABLE TO WALK AROUND ROOM AND VOID TO URINAL WITHOUT ASSIST. HE HAD A SHOWER TODAY ALSO.
[2017-03-17 03:30] LABS: BASOPHIL % 0.3 %; EOSINOPHIL # 0.2 K/uL (0.0-0.5); EOSINOPHIL % 2.4 %; HEMATOCRIT 36.2 % (33.0-50.0); HEMOGLOBIN 12.5 g/dL (11.0-16.0); IMMATURE GRANULOCYTE # 0.1 K/uL (0.0-0.3); IMMATURE GRANULOCYTE % 0.7 %; LYMPHOCYTE # 1.1 K/uL (0.8-4.0); LYMPHOCYTE % 15.8 %; MCH 33.4 pg (27.0-34.0); MCHC 34.5 gm/dL (32.0-36.5); MCV 96.8 fl (83.0-98.0); MONOCYTE # 0.6 K/uL (0.0-1.0); MONOCYTE % 8.7 %; NEUTROPHIL # (ANC) 5.2 K/uL (1.4-9.0); NEUTROPHIL % 72.1 %; NRBC % 0 /100WBC (0-0.00); PLATELET COUNT 180 K/uL (150-450); RBC 3.74 M/uL (3.50-5.50); RDW-CV 13.5 % (11.9-14.6); WBC 7.2 K/uL (4.0-11.0)
[2017-03-17 03:47] LABS: CALCIUM 7.9 mg/dL (8.5-10.5); CREATININE 0.8 mg/dL (0.6-1.3)
--- NOTE | 2017-03-17 04:22 | NUR ---
Significant Event: VSS, UP AD JOY, WILL CALL IF NEEDS HELP. COMPLETELY ORIENTED. ALL IV FLUID'S D/C'D. HAS HAD NO COMPLICATIONS OR PAIN THIS EVENING. IS SCHEDULED FOR SHIP'S COOK THIS AM. R&B/CONSENTS DONE AND ARE IN CHART. Follow up:
--- NOTE | 2017-03-17 15:15 | NUR ---
Introduced self and role of care management to patient and his . They live at [facility] in an independent apartment. [facility] They plan on him going home later today. Deny discharge needs at this time. Will follow.
[2017-03-17] MEDS ORDERED: NORVASC5 MG PO (16:31)
[2017-03-17] MEDS ORDERED: IMDUR30 MG PO (16:33)
[2017-03-17] MEDS ORDERED: MIRALAX17 GM PO (16:36)
--- NOTE | 2017-03-17 16:40 | NUR ---
Significant Event: PT A&0x3, lung sounds equal bilaterally. Returned from cardiac odd job laborer and recovered without complications. Up in the halls with staff. No complaints of chest pain or SOB. VSS. Follow up: To d/c this afternoon.
--- NOTE | 2017-03-17 18:56 | NUR ---
Patient discharged, wheeled out to private auto accompanied by CURTAIN INSPECTOR. VSS. Denies pain and shortness of breath. New medications, radial heart cath post care teaching, prescriptions discussed.
== END 2017-03-17 17:30 | disposition disaster alternative care site (69) | DRG 287 ==
LOC: GMED 22:57 → GPCU 03-15 00:37
PROVIDERS: Emergency Medicine; Internal Medicine Interventional Cardiology; ADMIT Internal Medicine
PROC: B2111ZZ Fluoroscopy of Multiple Coronary Arteries using Low Osmolar Contrast (ICD-10-PCS; principal; 2017-03-17)
PROC: 4A023N7 Measurement of Cardiac Sampling and Pressure, Left Heart, Percutaneous Approach (ICD-10-PCS; principal; 2017-03-17)
DX: I25.110 Atherosclerotic heart disease of native coronary artery with unstable angina pectoris (principal); I71.2 Thoracic aortic aneurysm, without rupture; Z86.74 Personal history of sudden cardiac arrest; T82.855A Stenosis of coronary artery stent, initial encounter; I10 Essential (primary) hypertension; E11.9 Type 2 diabetes mellitus without complications; E78.5 Hyperlipidemia, unspecified; I35.8 Other nonrheumatic aortic valve disorders; Z79.84 Long term (current) use of oral hypoglycemic drugs; Z88.2 Allergy status to sulfonamides; Z88.8 Allergy status to other drugs, medicaments and biological substances; M19.90 Unspecified osteoarthritis, unspecified site; M81.0 Age-related osteoporosis without current pathological fracture; Z85.46 Personal history of malignant neoplasm of prostate; Z85.828 Personal history of other malignant neoplasm of skin; Z79.02 Long term (current) use of antithrombotics/antiplatelets; Z79.82 Long term (current) use of aspirin; Z79.52 Long term (current) use of systemic steroids; G89.29 Other chronic pain; M25.579 Pain in unspecified ankle and joints of unspecified foot; Z87.891 Personal history of nicotine dependence
CPT/HCPCS: J1644; J3010; J7030; J7050; J7120; J7512; Q9967

== ENCOUNTER → 2017-03-28 | Outpatient (CLI) | payer MEDICARE ==
[~2017-03-28] MED LIST changes: +ASPIRIN LO-DOSE81 MG PO; +CRANBERRY200 MG PO; +DELTASONE5 MG PO; +IMDUR30 MG PO; +MIRALAX17 GM PO; +NORVASC5 MG PO
[2017-03-28 13:12] LABS: ANION GAP 11.9 (10.0-19.0); CALCIUM 8.4 mg/dL (8.5-10.5); CREATININE 0.9 mg/dL (0.6-1.3); POTASSIUM 3.9 mMol/L (3.7-5.1)
== END ==
LOC: LNHI 12:51
PROVIDERS: Internal Medicine Interventional Cardiology
DX: R07.9 Chest pain, unspecified (principal); I71.00 Dissection of unspecified site of aorta; I48.91 Unspecified atrial fibrillation